=== PATIENT | male | born 1980 | race Two or more races ===

== ENCOUNTER 2018-02-13 12:19 | Emergency (ER) | payer BC ==
[2018-02-13] MEDS ORDERED: LORazepam 2 MG/ML SDV IVPUSH ONE (14:12)
[2018-02-13] MEDS ORDERED: Lactated Ringers 1,000 ML IV SCH (14:15)
[2018-02-13 14:54] LABS: CHLORIDE,CL 101 mmol/L (98-107); SODIUM,NA 137 mmol/L (136-148)
--- NOTE | 2018-02-13 15:50 | EDM.PDOCBH ---
ED HPI GENERAL MEDICAL PROBLEM - General Chief Complaint: Drug or Alcohol Abuse Stated Complaint: ALCOHOL WITHDRAWAL Time Seen by Provider: 02/13/18 13:45 Source of Information: Reports: Patient, Family History Limitations: Reports: No Limitations - History of Present Illness INITIAL COMMENTS - FREE TEXT/NARRATIVE: HISTORY AND PHYSICAL: History of present illness: [Pt comes to the ER complaining of ETOH withdrawals. States that he had been sober for the past 9 years, but relapsed within the past year. Has been drinking heavily for the past week or so. is with him today and states that he drank until 3 a.m. this morning. Denies feeling tremulous, and like he is detoxing. Feels some nausea and weakness, has a mild headache. These concerns bring him to the ER today. He would also like a referral to a local resource to help him stay sober. Denies fever and chills. No chest pain, Shortness of breath, difficulty breathing. Denies abd pain, nausea, vomiting, diarrhea or constipation. No muscle spasms or aches. No shaking, confusion or disorientation. ] Review of systems: As per history of present illness and below otherwise all systems reviewed and negative. Past medical history: As per history of present illness and as reviewed below otherwise noncontributory. Surgical history: As per history of present illness and as reviewed below otherwise noncontributory. Social history: No reported history of drug or alcohol abuse. Family history: As per history of present illness and as reviewed below otherwise noncontributory. Physical exam: HEENT: Atraumatic, normocephalic. PERRLA. EOMI. no nystagmus. Oral mucous membranes are pink and slightly dry. Lungs: Clear to auscultation, breath sounds equal bilaterally. No wheezing crackles or rales. Heart: S1S2, regular rate and rhythm. Abdomen: Soft, nondistended, nontender. Negative for masses, guarding or rebound. Negative for costovertebral tenderness. Pelvis: Stable nontender. Genitourinary: Deferred. Rectal: Deferred. Extremities: Atraumatic, negative for cords or calf pain. No tremors or trembling. Neurovascular unremarkable. Neuro: Awake, alert, oriented. Cranial nerves II through XII unremarkable. Motor and sensory unremarkable throughout. Exam nonfocal. Diagnostics: [CBC, CMP, ETOH, magnesium] Therapeutics: [LR 1000mL, lorazepam 0.5mg IV] Impression: [alcoholism] Plan: [Discussed with patient that his lab results are unremarkable. He feels improved after fluids and lorazepam. He is discharged with Rx written for lorazepam 0.5 mg #6 sig: One half to one tablet by mouth every 8 hours as needed for withdrawals, 0 refills. Patient reiterates that he is motivated to stop drinking again sobriety. He is given referral to [facility] as well as [facility], with the walk-in hours listed. Strict return precautions are reviewed. She verbalized understanding of today's discussion. Follow-up with local PCP.] Definitive disposition and diagnosis as appropriate pending reevaluation and review of above. Headache Pain Score (Numeric/FACES): 7 - Related Data Allergies Allergy/AdvReac Type Severity Reaction Status Date / Time No Known Allergies Allergy Verified 02/13/18 12:49 Home Meds: Home Meds . [No Known Home Meds] 02/13/18 [History] Past Medical History - Past Health History Medical/Surgical History: Denies Medical/Surgical History - Infectious Disease History Infectious Disease History: Reports: Chicken Pox Social & Family History - Family History Family Medical History: Noncontributory - Tobacco Use Smoking Status *Q: Never Smoker - Alcohol Use Days Per Week of Alcohol Use: 7 Number of Drinks Per Day: 2 Total Drinks Per Week: 14 - Recreational Drug Use Recreational Drug Use: No ED ROS GENERAL - Review of Systems Review Of Systems: ROS reveals no pertinent complaints other than HPI. ED EXAM, BEHAVIORAL HEALTH - Physical Exam Exam: See Below COURSE, BEHAVIORAL HEALTH COMP - Course Vital Signs: Last Vital Signs Temp 98.5 F 02/13/18 12:46 Pulse 84 02/13/18 15:53 Resp 18 02/13/18 15:53 BP 147/92 H 02/13/18 15:53 Pulse Ox 98 02/13/18 15:53 Orders, Labs, Meds: Laboratory Tests 02/13/18 02/13/18 Range/Units 14:15 14:15 WBC 6.52 (4.0-11.0) K/uL RBC 4.96 (4.50-5.90) M/uL Hgb 16.3 (13.0-17.0) g/dL Hct 45.5 (38.0-50.0) % MCV 91.7 (80.0-98.0) fL MCH 32.9 H (27.0-32.0) pg MCHC 35.8 (31.0-37.0) g/dL RDW Std Deviation 44.4 (28.0-62.0) fl RDW Coeff of David 13 (11.0-15.0) % Plt Count 252 (150-400) K/uL MPV 10.80 (7.40-12.00) fL Neut % (Auto) 61.3 (48.0-80.0) % Lymph % (Auto) 30.1 (16.0-40.0) % [place] % (Auto) 6.7 (0.0-15.0) % Eos % (Auto) 1.1 (0.0-7.0) % Baso % (Auto) 0.8 (0.0-1.5) % Neut # (Auto) 4.0 (1.4-5.7) K/uL Lymph # (Auto) 2.0 (0.6-2.4) K/uL [place] # (Auto) 0.4 (0.0-0.8) K/uL Eos # (Auto) 0.1 (0.0-0.7) K/uL Baso # (Auto) 0.1 (0.0-0.1) K/uL Nucleated RBC % 0.0 /100WBC Nucleated RBCs # 0 K/uL Sodium 137 (136-148) mmol/L Potassium 3.7 (3.5-5.1) mmol/L Chloride 101 (98-107) mmol/L Carbon Dioxide 24.7 (21.0-32.0) mmol/L BUN 8 (7.0-18.0) mg/dL Creatinine 1.0 (0.8-1.3) mg/dL Est Cr Clr Drug Dosing 90.38 mL/min Estimated GFR (MDRD) > 60.0 ml/min Glucose 119 H (74-106) mg/dL Calcium 8.5 (8.5-10.1) mg/dL Magnesium 1.5 (1.5-2.0) mg/dL Total Bilirubin 0.3 (0.2-1.0) mg/dL AST 36 (15-37) IU/L ALT 75 H (14-63) IU/L Alkaline Phosphatase 105 (46-116) U/L Total Protein 8.1 (6.4-8.2) g/dL Albumin 4.2 (3.4-5.0) g/dL Globulin 3.9 H (2.0-3.5) g/dL Albumin/Globulin Ratio 1.1 L (1.3-2.8) Ethyl Alcohol 8 mg/dL Medications Discontinued Medications Generic Name Dose Route Start Last Admin Trade Name Sebastián PRN Reason Stop Dose Admin Lactated Ringer's 1,000 mls @ 999 mls/hr 02/13/18 14:15 02/13/18 14:27 Ringers, Lactated IV 999 mls/hr .BOLUS NICKY Administration Lorazepam 0.5 mg 02/13/18 14:12 02/13/18 14:28 Ativan IVPUSH 02/13/18 14:13 0.5 mg ONETIME ONE Administration Departure - Departure Time of Disposition: 15:45 Disposition: Home, Self-Care 01 Condition: Good Clinical Impression: Alcohol abuse - Discharge Information Instructions: Alcohol Use Disorder Referrals: PCP,None [Primary Care Provider] - Forms: ED Department Discharge Additional Instructions: The following information is given to patients seen in the emergency department who are being discharged to home. This information is to outline your options for follow-up care. We provide all patients seen in our emergency department with a follow-up referral. The need for follow-up, as well as the timing and circumstances, are variable depending upon the specifics of your emergency department visit. If you don't have a primary care physician on staff, we will provide you with a referral. We always advise you to contact your personal physician following an emergency department visit to inform them of the circumstance of the visit and for follow-up with them and/or the need for any referrals to a consulting specialist. The emergency department will also refer you to a specialist when appropriate. This referral assures that you have the opportunity for follow-up care with a specialist. All of these measure are taken in an effort to provide you with optimal care, which includes your follow-up. Under all circumstances we always encourage you to contact your private physician who remains a resource for coordinating your care. When calling for follow-up care, please make the office aware that this follow-up is from your recent emergency room visit. If for any reason you are refused follow-up, please contact the [facility] emergency department at and asked to speak to the emergency department charge nurse. [facility] [address] [place] [phone] Toll Free: Crisis Line: Toll Free Crisis Line: TTY: Follow-up at the above listed clinic tomorrow morning between the hours of 8 and 9:30. The doors open at 7:30 a.m. Take medications as prescribed. Return to ER as needed as discussed.
== END 2018-02-13 15:53 | disposition home or self-care (01) ==
LOC: EDBD 12:19 → MW.ED 12:19
DX: F10.239 Alcohol dependence with withdrawal, unspecified (principal); Y90.0 Blood alcohol level of less than 20 mg/100 ml
CPT/HCPCS: 36415; 80053; 83735; 85025; 96361; 96374; 99285; G0480; J2060; J7120; 99283

== ENCOUNTER 2019-06-13 11:31 | Emergency (ER) | payer BC, OTHER ==
[2019-06-13] MEDS ORDERED: Ondansetron 4 MG/2 ML SDV IVPUSH ONE (11:52)
[2019-06-13] MEDS ORDERED: Sodium Chloride 0.9% 1,000 ML IV ONE (11:52)
--- NOTE | 2019-06-13 11:52 | EDM.PDOCBH ---
ED HPI GENERAL MEDICAL PROBLEM - General Chief Complaint: Drug or Alcohol Abuse Stated Complaint: ALCOHOL WITHDRAWAL Time Seen by Provider: 06/13/19 11:52 Source of Information: Reports: Patient History Limitations: Reports: No Limitations - History of Present Illness INITIAL COMMENTS - FREE TEXT/NARRATIVE: HISTORY AND PHYSICAL: History of present illness: Patient is a 38-year-old male presents to the emergency room with concerns of alcohol with drawl. He states he does have a long-standing history of intermittent alcohol abuse. He was last seen in our emergency 2018 for alcohol withdrawal and at that time had sought out a a treatment and had been sober for almost a year. He states over the past several months he has been using alcohol socially and intermittently. Over the past 4 days he has been drinking heavily. States he has not drank since yesterday evening. Is here today as he is under increased stress; he plans to return to to abstain from further alcohol use. Other than feeling generally unwell and mild nausea he has no other health concerns or complaints. Patient denies any fever, chills, headache, change in vision, syncope or near syncope. Denies any chest pain, back pain, shortness of breath or cough. Denies any abdominal pain, vomiting, diarrhea, constipation or dysuria. Has not noted any blood in urine or stool. Patient has been eating and drinking appropriately. Review of systems: As per history of present illness and below otherwise all systems reviewed and negative. Past medical history: As per history of present illness and as reviewed below otherwise noncontributory. Surgical history: As per history of present illness and as reviewed below otherwise noncontributory. Social history: See social history for further information Family history: As per history of present illness and as reviewed below otherwise noncontributory. Physical exam: General: Well-developed and well-nourished 38-year-old male. Alert and oriented. Nontoxic appearing and in no acute distress. HEENT: Atraumatic, normocephalic, pupils equal and reactive bilaterally, negative for conjunctival pallor or scleral icterus, mucous membranes moist, TMs normal bilaterally, throat clear, neck supple, nontender, trachea midline. No drooling or trismus noted. No meningeal signs. No hot potato voice noted. Lungs: Clear to auscultation, breath sounds equal bilaterally, chest nontender. Heart: S1S2, regular rate and rhythm without overt murmur Abdomen: Soft, nondistended, nontender. Negative for masses. Negative for costovertebral tenderness. Pelvis: Stable nontender. Skin: Intact, warm, dry. No lesions or rashes noted. Extremities: Atraumatic, moves all extremities per self without difficulty or deficits, negative for cords or calf pain. Neurovascular unremarkable. Neuro: Awake, alert, oriented. Cranial nerves II through XII unremarkable. Cerebellum unremarkable. Motor and sensory unremarkable throughout. Exam nonfocal. Notes: Lab work is unremarkable. Vital signs remain stable. He feels improved. He does have a ride home. We discussed following up with counseling or AA as he has done in the past. Supportive care measures were reviewed and discussed. Voices understanding and is agreeable to plan of care. Denies any further questions or concerns at this time. Diagnostics: CBC, CMP Therapeutics: IV fluids, Zofran, Ativan Prescription: None Impression: Alcohol Abuse Plan: 1. Stop alcohol use. Seek out treatment as we discussed; either counseling or AA as you've done in the past 2. Follow up with your primary care provider 3. Return to the ED as needed as discussed. Definitive disposition and diagnosis as appropriate pending reevaluation and review of above. - Related Data Allergies Allergy/AdvReac Type Severity Reaction Status Date / Time No Known Allergies Allergy Verified 06/13/19 11:44 Home Meds: Home Meds . [No Known Home Meds] 02/13/18 [History] Past Medical History - Past Health History Medical/Surgical History: Denies Medical/Surgical History Psychiatric History: Reports: Addiction - Infectious Disease History Infectious Disease History: Reports: None Social & Family History - Family History Family Medical History: Noncontributory - Tobacco Use Smoking Status *Q: Never Smoker - Recreational Drug Use Recreational Drug Use: No ED ROS GENERAL - Review of Systems Review Of Systems: ROS reveals no pertinent complaints other than HPI. ED EXAM, BEHAVIORAL HEALTH - Physical Exam Exam: See Below (See dictation) COURSE, BEHAVIORAL HEALTH COMP - Course Vital Signs: Last Vital Signs Temp 96.7 F 06/13/19 11:44 Pulse 88 06/13/19 11:44 Resp 17 06/13/19 11:44 BP 152/104 H 06/13/19 11:44 Pulse Ox 94 L 06/13/19 11:44 Orders, Labs, Meds: Active Orders 24 hr Category Date Time Status Sodium Chloride 0.9% [Normal Saline] 1,000 ml Med 06/13/19 11:52 Active IV STAT Medication Orders Sodium Chloride (Normal Saline) 1,000 mls @ 999 mls/hr IV STAT ONE Stop: 06/13/19 12:52 Last Admin: 06/13/19 12:05 Dose: 999 mls/hr Laboratory Tests 06/13/19 06/13/19 Range/Units 12:05 12:05 WBC 7.94 (4.0-11.0) K/uL RBC 4.98 (4.50-5.90) M/uL Hgb 16.2 (13.0-17.0) g/dL Hct 45.7 (38.0-50.0) % MCV 91.8 (80.0-98.0) fL MCH 32.5 H (27.0-32.0) pg MCHC 35.4 (31.0-37.0) g/dL RDW Std Deviation 45.4 (28.0-62.0) fl RDW Coeff of David 14 (11.0-15.0) % Plt Count 233 (150-400) K/uL MPV 10.30 (7.40-12.00) fL Neut % (Auto) 45.4 L (48.0-80.0) % Lymph % (Auto) 46.5 H (16.0-40.0) % [place] % (Auto) 7.2 (0.0-15.0) % Eos % (Auto) 0.4 (0.0-7.0) % Baso % (Auto) 0.5 (0.0-1.5) % Neut # (Auto) 3.6 (1.4-5.7) K/uL Lymph # (Auto) 3.7 H (0.6-2.4) K/uL [place] # (Auto) 0.6 (0.0-0.8) K/uL Eos # (Auto) 0.0 (0.0-0.7) K/uL Baso # (Auto) 0.0 (0.0-0.1) K/uL Nucleated RBC % 0.0 /100WBC Nucleated RBCs # 0 K/uL Sodium 139 (136-148) mmol/L Potassium 3.8 (3.5-5.1) mmol/L Chloride 100 (98-107) mmol/L Carbon Dioxide 27.2 (21.0-32.0) mmol/L BUN 9 (7.0-18.0) mg/dL Creatinine 0.8 (0.8-1.3) mg/dL Est Cr Clr Drug Dosing 103.40 mL/min Estimated GFR (MDRD) > 60.0 ml/min Glucose 154 H (74-106) mg/dL Calcium 8.5 (8.5-10.1) mg/dL Total Bilirubin 0.4 (0.2-1.0) mg/dL AST 50 H (15-37) IU/L ALT 56 (14-63) IU/L Alkaline Phosphatase 92 (46-116) U/L Total Protein 8.3 H (6.4-8.2) g/dL Albumin 4.1 (3.4-5.0) g/dL Globulin 4.2 H (2.6-4.0) g/dL Albumin/Globulin Ratio 1.0 (0.9-1.6) Medications Generic Name Dose Route Start Last Admin Trade Name Freq PRN Reason Stop Dose Admin Sodium Chloride 1,000 mls @ 999 mls/hr 06/13/19 11:52 06/13/19 12:05 Normal Saline IV 06/13/19 12:52 999 mls/hr STAT ONE Administration Discontinued Medications Generic Name Dose Route Start Last Admin Trade Name Mickyq PRN Reason Stop Dose Admin Lorazepam 1 mg 06/13/19 11:58 06/13/19 12:06 Ativan IVPUSH 06/13/19 11:59 Not Given ONETIME ONE Lorazepam 0.5 mg 06/13/19 12:02 06/13/19 12:05 Ativan IVPUSH 06/13/19 12:03 0.5 mg ONETIME ONE Administration Ondansetron HCl 4 mg 06/13/19 11:52 06/13/19 12:06 Zofran IVPUSH 06/13/19 11:53 4 mg ONETIME ONE Administration Departure - Departure Time of Disposition: 12:42 Disposition: Home, Self-Care 01 Clinical Impression: Alcohol abuse - Discharge Information Instructions: Alcohol Use Disorder Referrals: PCP,None [Primary Care Provider] - Forms: ED Department Discharge Additional Instructions: The following information is given to patients seen in the emergency department who are being discharged to home. This information is to outline your options for follow-up care. We provide all patients seen in our emergency department with a follow-up referral. The need for follow-up, as well as the timing and circumstances, are variable depending upon the specifics of your emergency department visit. If you don't have a primary care physician on staff, we will provide you with a referral. We always advise you to contact your personal physician following an emergency department visit to inform them of the circumstance of the visit and for follow-up with them and/or the need for any referrals to a consulting specialist. The emergency department will also refer you to a specialist when appropriate. This referral assures that you have the opportunity for follow-up care with a specialist. All of these measure are taken in an effort to provide you with optimal care, which includes your follow-up. Under all circumstances we always encourage you to contact your private physician who remains a resource for coordinating your care. When calling for follow-up care, please make the office aware that this follow-up is from your recent emergency room visit. If for any reason you are refused follow-up, please contact the [facility] Emergency Department at and asked to speak to the emergency department charge nurse. [facility] [address] [place] [id number] [place] [address] 1. Stop alcohol use. Seek out treatment as we discussed; either counseling or AA as you've done in the past 2. Follow up with your primary care provider 3. Return to the ED as needed as discussed. - My Orders Last 24 Hours: My Active Orders 06/13/19 11:52 Sodium Chloride 0.9% [Normal Saline] 1,000 ml IV STAT - Assessment/Plan Last 24 Hours: My Active Orders 06/13/19 11:52 Sodium Chloride 0.9% [Normal Saline] 1,000 ml IV STAT
[2019-06-13] MEDS ORDERED: LORazepam 2 MG/ML SDV IVPUSH ONE ×2 (11:58→12:02)
[2019-06-13 12:32] LABS: BLOOD UREA NITROGEN,BUN 9 mg/dL (7.0-18.0); CARBON DIOXIDE,CO2 27.2 mmol/L (21.0-32.0); CHLORIDE,CL 100 mmol/L (98-107); GLUCOSE RANDOM 154 mg/dL (74-106); POTASSIUM,K 3.8 mmol/L (3.5-5.1); SODIUM,NA 139 mmol/L (136-148)
== END 2019-06-13 13:22 | disposition home or self-care (01) ==
LOC: MW.ED 11:31
DX: F10.10 Alcohol abuse, uncomplicated (principal)
CPT/HCPCS: 36415; 80053; 85025; 96361; 96374; 96375; 99284; J2060; J2405; J7040; 99283

== ENCOUNTER 2019-06-15 13:48 | Emergency (ER) | payer SELFPAY ==
--- NOTE | 2019-06-15 14:08 | EDM.PDOC ---
ED HPI GENERAL MEDICAL PROBLEM - General Chief Complaint: Drug or Alcohol Abuse Stated Complaint: DETOX Time Seen by Provider: 06/15/19 13:52 - History of Present Illness INITIAL COMMENTS - FREE TEXT/NARRATIVE: HISTORY AND PHYSICAL: History of present illness: The patient is a 38-year-old male who presents via EMS requesting detox for alcohol. The patient was seen here 2 days ago for concerns about alcohol use and abuse and withdrawal symptoms and had a full lab workup and was given IV medications and was advised to follow-up and get outpatient care. He told the provider at that time he would be going to Alcoholics Anonymous a connecting there to try to get clean from the alcohol and today he called EMS because he can't stop drinking. The patient does have a history of hypertension and diabetes and takes medications for that. He was told by EMS that we do not have detox facilities here nor a rehabilitation/treatment program and he still wanted to come here. Patient was also offered detox with the precinct police sergeant which was also with EMS at the patient's home and he declined. Police did a courtesy alcohol level with breathalyzer which was 0.261 and the Accu-Chek per EMS was 195. On the patient's last visit 2 days ago his biggest request was to get Ativan for home as he has had this in the past and he was not given a prescription for this. On my interview of him he says that he has been drinking beer and his last beer intake was 9 hours ago and he ate cereal this morning without issues or problems. He has no abdominal pain nausea vomiting chest pain or shortness of breath. I queried him on whether or not he drink any alcohol this morning because considering his alcohol level on breathalyzer it seems significantly high for only drinking 6 beers 9 hours ago and he insists he did not have any other alcohol intake. He has no other systemic complaints and at the end of our interview again asked me if he could get some Ativan for home. Review of systems: As per history of present illness and below otherwise all systems reviewed and negative. Past medical history: As per history of present illness and as reviewed below otherwise noncontributory. Surgical history: As per history of present illness and as reviewed below otherwise noncontributory. Social history: No reported history of drug or alcohol abuse. Family history: As per history of present illness and as reviewed below otherwise noncontributory. Physical exam: General: Well-developed well-nourished man who is nontoxic but somewhat tearful on my evaluation. Vital signs are noted by me but on my personal evaluation his blood pressure was 142/99. Early in the ED and is cooperative HEENT: Atraumatic, normocephalic, pupils reactive, sclerae are mildly injected negative for conjunctival pallor or scleral icterus, mucous membranes moist, throat clear, neck supple, nontender, trachea midline. Lungs: Clear to auscultation, breath sounds equal bilaterally, chest nontender. Heart: S1S2, regular rate and rhythm no overt murmurs Abdomen: Soft, nondistended, nontender. Negative for masses or hepatosplenomegaly. Negative for costovertebral tenderness. Pelvis: Stable nontender. Genitourinary: Deferred. Rectal: Deferred. Extremities: Atraumatic, negative for cords or calf pain. Neurovascular unremarkable. Full range of motion Neuro: Awake, alert, oriented. Cranial nerves II through XII unremarkable. Cerebellum unremarkable. Motor and sensory unremarkable throughout. Exam nonfocal. The patient is not shaky tachycardic or exhibiting any signs of tremulousness Diagnostics: Please see above history of present illness for Accu-Chek and police obtained Breathalizer alcohol level Therapeutics: None I advised the patient and will give him information on connecting with the treatment planned at [facility] in [place] as well as our local resources. I advised him to push hydration and continue to eat a bland diet like the cereal he had this morning and to try to connect and get treatment with the resources I gave him or with Alcoholics Anonymous. We will work on helping him get a ride home and/or asked the police for courtesy ride. Impression: Medical screening exam, history of alcohol use and abuse with alcohol intoxication Definitive disposition and diagnosis as appropriate pending reevaluation and review of above. Upper Abdomen Pain Score (Numeric/FACES): 8 - Related Data Allergies Allergy/AdvReac Type Severity Reaction Status Date / Time No Known Allergies Allergy Verified 06/13/19 11:44 Home Meds: Home Meds Lisinopril 5 mg PO DAILY 06/15/19 [History] metFORMIN [Glucophage XR] 500 mg PO DAILY 06/15/19 [History] Past Medical History - Past Health History Medical/Surgical History: Denies Medical/Surgical History Psychiatric History: Reports: Addiction - Infectious Disease History Infectious Disease History: Reports: None Social & Family History - Family History Family Medical History: Noncontributory - Tobacco Use Smoking Status *Q: Never Smoker - Recreational Drug Use Recreational Drug Use: No ED ROS GENERAL - Review of Systems Review Of Systems: ROS reveals no pertinent complaints other than HPI. ED EXAM, GENERAL - Physical Exam Exam: See Below (See dictation) Course - Vital Signs Last Recorded V/S: Last Vital Signs Temp 36.3 C 06/15/19 13:57 Pulse 87 06/15/19 13:57 Resp 18 06/15/19 13:57 BP 142/99 H 06/15/19 14:01 Pulse Ox 97 06/15/19 13:57 Departure - Departure Time of Disposition: 14:08 Disposition: Home, Self-Care 01 Condition: Good Clinical Impression: Alcohol abuse, Encounter for medical screening examination - Discharge Information Referrals: PCP,Unknown [Primary Care Provider] - Additional Instructions: The following information is given to patients seen in the emergency department who are being discharged to home. This information is to outline your options for follow-up care. We provide all patients seen in our emergency department with a follow-up referral. The need for follow-up, as well as the timing and circumstances, are variable depending upon the specifics of your emergency department visit. If you don't have a primary care physician on staff, we will provide you with a referral. We always advise you to contact your personal physician following an emergency department visit to inform them of the circumstance of the visit and for follow-up with them and/or the need for any referrals to a consulting specialist. The emergency department will also refer you to a specialist when appropriate. This referral assures that you have the opportunity for followup care with a specialist. All of these measure are taken in an effort to provide you with optimal care, which includes your followup. Under all circumstances we always encourage you to contact your private physician who remains a resource for coordinating your care. When calling for followup care, please make the office aware that this follow-up is from your recent emergency room visit. If for any reason you are refused follow-up, please contact the [facility] emergency department at and ask to speak to the emergency department charge nurse. [facility] Primary care- Internal Medicine and Family [address] [address] Push hydration with water and Gatorade and avoid alcohol use. Please use the resources you have been given today in the ED to try to connect with outpatient treatment or you may choose to go to [facility] and be evaluated for the inpatient program as you wish. Please also connect with primary care if you do not have a clinic provider for further care and evaluation of this problem as well as her chronic medical problems and return to ER as needed and as discussed
== END 2019-06-15 14:20 | disposition home or self-care (01) ==
LOC: MW.ED 13:48
DX: F10.229 Alcohol dependence with intoxication, unspecified (principal); Z79.899 Other long term (current) drug therapy
CPT/HCPCS: 99283

== ENCOUNTER 2019-06-17 00:25 | Emergency (ER) | payer SELFPAY ==
--- NOTE | 2019-06-17 00:42 | EDM.PDOC ---
ED HPI GENERAL MEDICAL PROBLEM - General Chief Complaint: General Stated Complaint: DETOX Time Seen by Provider: 06/17/19 00:39 - History of Present Illness INITIAL COMMENTS - FREE TEXT/NARRATIVE: HISTORY AND PHYSICAL: History of present illness: Patient 38-year-old male with history of alcohol abuse who presents for medical screening exam he's concerned about his alcohol abuse in general but is unwilling to be transferred for inpatient treatment. Patient is agreeable to outpatient referral Review of systems: As per history of present illness and below otherwise all systems reviewed and negative. Past medical history: As per history of present illness and as reviewed below otherwise noncontributory. Surgical history: As per history of present illness and as reviewed below otherwise noncontributory. Social history: No reported history of drug or alcohol abuse. Family history: As per history of present illness and as reviewed below otherwise noncontributory. Physical exam: HEENT: Atraumatic, normocephalic, pupils reactive, negative for conjunctival pallor or scleral icterus, mucous membranes moist, throat clear, neck supple, nontender, trachea midline. Lungs: Clear to auscultation, breath sounds equal bilaterally, chest nontender. Heart: S1S2, regular, negative for clicks, rubs, or JVD. Abdomen: Soft, nondistended, nontender. Negative for masses or hepatosplenomegaly. Negative for costovertebral tenderness. Pelvis: Stable nontender. Genitourinary: Deferred. Rectal: Deferred. Extremities: Atraumatic, negative for cords or calf pain. Neurovascular unremarkable. Neuro: Awake, alert, oriented. Cranial nerves II through XII unremarkable. Cerebellum unremarkable. Motor and sensory unremarkable throughout. Exam nonfocal. Diagnostics: None Therapeutics: None Impression: #1 alcohol abuse #2 medical screening exam Definitive disposition and diagnosis as appropriate pending reevaluation and review of above. - Related Data Allergies Allergy/AdvReac Type Severity Reaction Status Date / Time No Known Allergies Allergy Verified 06/17/19 00:36 Home Meds: Home Meds Lisinopril 5 mg PO DAILY 06/15/19 [History] metFORMIN [Glucophage XR] 500 mg PO DAILY 06/15/19 [History] Past Medical History - Past Health History Medical/Surgical History: Denies Medical/Surgical History Psychiatric History: Reports: Addiction - Infectious Disease History Infectious Disease History: Reports: None Social & Family History - Family History Family Medical History: Noncontributory ED ROS GENERAL - Review of Systems Review Of Systems: ROS reveals no pertinent complaints other than HPI. ED EXAM, GENERAL - Physical Exam Exam: See Below (See dictation) Departure - Departure Time of Disposition: 00:41 Disposition: Home, Self-Care 01 Condition: Good Clinical Impression: Alcohol abuse, Encounter for medical screening examination - Discharge Information Referrals: PCP,None [Primary Care Provider] - Additional Instructions: The following information is given to patients seen in the emergency department who are being discharged to home. This information is to outline your options for follow-up care. We provide all patients seen in our emergency department with a follow-up referral. The need for follow-up, as well as the timing and circumstances, are variable depending upon the specifics of your emergency department visit. If you don't have a primary care physician on staff, we will provide you with a referral. We always advise you to contact your personal physician following an emergency department visit to inform them of the circumstance of the visit and for follow-up with them and/or the need for any referrals to a consulting specialist. The emergency department will also refer you to a specialist when appropriate. This referral assures that you have the opportunity for followup care with a specialist. All of these measure are taken in an effort to provide you with optimal care, which includes your followup. Under all circumstances we always encourage you to contact your private physician who remains a resource for coordinating your care. When calling for followup care, please make the office aware that this follow-up is from your recent emergency room visit. If for any reason you are refused follow-up, please contact the [facility] emergency department at and asked to speak to the emergency department charge nurse. Follow-up primary medical doctor and referral as discussed return as needed as discussed
== END 2019-06-17 00:49 | disposition home or self-care (01) ==
LOC: MW.ED 00:25
DX: F10.20 Alcohol dependence, uncomplicated (principal); Z79.899 Other long term (current) drug therapy
CPT/HCPCS: 99282